=== PATIENT | female | born 1985 ===

== ENCOUNTER 2019-04-10 15:53 | Emergency (ER) | payer SELFPAY ==
[~2019-04-10] VITALS: Ht 162 cm; Wt 65.9 kg
[2019-04-10] MEDS ORDERED: NS IV 1000 ML 1,000 ML IV SCH ×2 (17:05→20:15)
[2019-04-10] MEDS ORDERED: fentaNYL INJECTION 100 MCG/2 ML AMP IVP ONE (17:15)
[2019-04-10] MEDS ORDERED: ONDANSETRON 4 MG/2 ML (SDV) Z0FRAN IVP ONE (17:15)
[2019-04-10] MEDS ORDERED: HOLD METFORMIN - RECEIVED CONTRAST 20 ML VIAL IV SCH (17:30)
[2019-04-10] MEDS ORDERED: NS 100 ML (IVPB) BAG IV ONE (17:30)
[2019-04-10] MEDS ORDERED: IOHEXOL 350 MG/ML 100 ML (OMNIPAQUE 350) VIAL IV ONE (17:30)
[2019-04-10] MEDS ORDERED: CATHETER FLUSH 10 ML SYR IV PRN (17:30)
[2019-04-10 17:52] LABS: BASOPHILS % (AUTO) 0 % (0-10); EOSINOPHILS % (AUTO) 0 % (0-10); HEMATOCRIT 29 % (35-52); HEMOGLOBIN 9.2 G/DL (11.5-16.0); LYMPHOCYTES # (AUTO) 0.8 X 10^3 (1.0-4.0); LYMPHOCYTES % (AUTO) 8 % (12-44); MEAN CORPUSCULAR HEMOGLOBIN 23 PG (25-34); MEAN CORPUSCULAR HGB CONC 32 G/DL (32-36); MEAN CORPUSCULAR VOLUME 73 FL (80-99); MEAN PLATELET VOLUME 9.6 FL (7.4-10.4); MONOCYTES % (AUTO) 9 % (0-12); NEUTROPHILS # (AUTO) 9.1 X 10^3 (1.8-7.8); NEUTROPHILS % (AUTO) 83 % (42-75); PLATELET COUNT 425 10^3/uL (130-400); RED CELL DISTRIBUTION WIDTH 16.5 % (10.0-14.5); WHITE BLOOD COUNT 10.9 10^3/uL (4.3-11.0)
--- NOTE | 2019-04-10 17:54 | Diagnostic Imaging Report ---
PROCEDURE: CT abdomen and pelvis with contrast. TECHNIQUE: Multiple contiguous axial images were obtained through the abdomen and pelvis after administration of intravenous contrast. Auto Exposure Controls were utilized during the CT exam to meet ALARA standards for radiation dose reduction. INDICATION: Right lower quadrant pain with loss of appetite. FINDINGS: The lung bases are clear. The appendix is visualized and normal. Bowel gas pattern is normal. No evidence of constipation. No evidence of diverticulitis or colitis. Small bowel shows a few dilated loops with air-fluid level in the left upper quadrant. Remainder of the small bowel is not distended. No bowel wall thickening is demonstrated. There is small amount of free fluid in the pelvis. No pelvic masses are demonstrated. No intra-abdominal adenopathy of pathologic size. No free air. Good opacification of the aorta and abdominal vessels and organs which appear normal. Liver is normal. Gallbladder and bile ducts are normal. Pancreas and spleen are normal. The adrenal glands and kidneys are normal. Delayed images show normal enhancement of the renal collecting system with the bladder opacified and normal. No blastic or lytic bony changes. IMPRESSION: 1. No findings to indicate appendicitis. 2. A few mildly dilated loops of small bowel in the left upper quadrant, nonspecific in nature, which could represent enteritis. 3. Small amount of free fluid in the pelvis without evidence of pelvic mass. Dictated by: Dictated on workstation # [id number]
[2019-04-10 18:04] LABS: ALANINE AMINOTRANSFERASE 12 U/L (0-55); ALBUMIN 4.7 GM/DL (3.2-4.5); ALKALINE PHOSPHATASE 63 U/L (40-136); BILIRUBIN,TOTAL 0.5 MG/DL (0.1-1.0); BUN/CREATININE RATIO 13; CALCIUM 9.3 MG/DL (8.5-10.1); CARBON DIOXIDE 20 MMOL/L (21-32); CHLORIDE 106 MMOL/L (98-107); GFR ESTIMATED > 60; GLUCOSE 87 MG/DL (70-105); LIPASE 13 U/L (8-78); POTASSIUM 3.3 MMOL/L (3.6-5.0); SODIUM 139 MMOL/L (135-145); TOTAL PROTEIN 8.4 GM/DL (6.4-8.2)
[2019-04-10 18:24] LABS: BAND NEUTROPHILS 2 %; LYMPHOCYTES % (MANUAL) 7 %; MONOCYTES % (MANUAL) 9 %; NEUTROPHILS % (MANUAL) 82 %
[2019-04-10] MEDS ORDERED: KETOROLAC 30 MG/ML VIAL IVP ONE (18:30)
[2019-04-10 18:36] LABS: RBC MORPH NORMAL
--- NOTE | 2019-04-10 18:58 | ED Abdominal Pain ---
General Chief Complaint: Abdominal/GI Problems Stated Complaint: R SIDE ABD PAIN Nursing Triage Note: Pt to triage via W/C with c/o RLQ abd pain that started last night, rates 10/10. Pt is crying on arrival, guarding area. Pt was seen earlier at [facility] and was referred to come here. Pt denies any N/V, states she hasn't ate today. Sepsis Screen: No Definite Risk Source of Information: Patient, Family, Meeting Facilitator Exam Limitations: Language Barrier (ARINA DANIEL MD) History of Present Illness Date Seen by Provider: Apr 10, 2019 Time Seen by Provider: 16:35 Initial Comments This 33-year-old woman presents to the emergency room with right-sided abdominal pain for 3 days. She is also had headache and chills. She is nauseated without vomiting. She denies diarrhea or constipation. She has pain with urination. She denies any vaginal symptoms or pain with intercourse. She has had a tubal ligation. She speaks Bulgarian and history is obtained with the language line special education superintendent and the assistance of her . She denies any significant health problem. (ARINA DANIEL MD) Allergies and Home Medications Allergies Coded Allergies: No Known Drug Allergies (Unverified , 04/10/19) Patient Home Medication List Home Medication List Reviewed: Yes (ARINA DANIEL MD) Review of Systems Review of Systems Constitutional: see HPI, chills EENTM: No Symptoms Reported Respiratory: No Symptoms Reported Cardiovascular: No Symptoms Reported Gastrointestinal: See HPI Genitourinary: See HPI Musculoskeletal: no symptoms reported Skin: no symptoms reported Psychiatric/Neurological: See HPI, Headache Endocrine: No Symptoms Reported Hematologic/Lymphatic: No Symptoms Reported (ARINA DANIEL MD) Past Hdkaemk-Phrkfb-Ebbksm Hx Past Med/Social Hx: Reviewed and Corrections made (ARINA DANIEL MD) Patient Social History Alcohol Use: Denies Use Recreational Drug Use: No Smoking Status: Never a Smoker 2nd Hand Smoke Exposure: No Recent Foreign Travel: No Contact w/Someone Who Travel: No Recent Infectious Disease Expo: No Recent Hopitalizations: No Physical Abuse: No Sexual Abuse: No Mistreated: No Fear: No (ARINA DANIEL MD) Seasonal Allergies Seasonal Allergies: No (ARINA DANIEL MD) Past Medical History Surgeries: Yes Section, Tubal Ligation Respiratory: No Cardiac: No Neurological: No Genitourinary: No Gastrointestinal: No Musculoskeletal: No Endocrine: No HEENT: No Cancer: No Psychosocial: No Integumentary: No (ARINA DANIEL MD) Physical Exam Vital Signs Vital Signs - First Documented 04/10/19 16:06 Temp 37.2 Pulse 93 Resp 20 B/P (MAP) 101/68 (79) Pulse Ox 99 O2 Delivery Room Air (BERNOT,JOHN) Vital Signs Capillary Refill : Less Than 3 Seconds (ARINA DANIEL MD) Height/Weight/BMI Height: '" Weight: lbs. oz. kg; 25.00 BMI Method: General Appearance: WD/WN, moderate distress HEENT: PERRL/EOMI, normal ENT inspection, pharynx normal Neck: normal inspection, other (no true nuchal rigidity) Respiratory: lungs clear, normal breath sounds, no respiratory distress, no accessory muscle use Cardiovascular: regular rate, rhythm, no edema, no murmur Gastrointestinal: normal bowel sounds, soft, tenderness (throughout the right abdomen. Rovsing positive. Iliopsoas sign positive.) Extremities: normal inspection, no pedal edema Neurologic/Psychiatric: motorized squad commanding officer II-XII nml as tested, no motor/sensory deficits, alert, normal mood/affect, oriented x 3 Skin: normal color, warm/dry (ARINA DANIEL MD) Progress/Results/Core Measures Results/Orders Lab Results Laboratory Tests Test 04/10/19 16:29 04/10/19 20:58 Range/Units White Blood Count 10.9 4.3-11.0 10^3/uL Red Blood Count 3.99 L 4.35-5.85 10^6/uL Hemoglobin 9.2 L 11.5-16.0 G/DL Hematocrit 29 L 35-52 % Mean Corpuscular Volume 73 L 80-99 FL Mean Corpuscular Hemoglobin 23 L 25-34 PG Mean Corpuscular Hemoglobin Concent 32 32-36 G/DL Red Cell Distribution Width 16.5 H 10.0-14.5 % Platelet Count 425 H 130-400 10^3/uL Mean Platelet Volume 9.6 7.4-10.4 FL Neutrophils (%) (Auto) 83 H 42-75 % Lymphocytes (%) (Auto) 8 L 12-44 % Monocytes (%) (Auto) 9 0-12 % Eosinophils (%) (Auto) 0 0-10 % Basophils (%) (Auto) 0 0-10 % Neutrophils # (Auto) 9.1 H 1.8-7.8 X 10^3 Lymphocytes # (Auto) 0.8 L 1.0-4.0 X 10^3 Monocytes # (Auto) 1.0 0.0-1.0 X 10^3 Eosinophils # (Auto) 0.0 0.0-0.3 10^3/uL Basophils # (Auto) 0.0 0.0-0.1 10^3/uL Neutrophils % (Manual) 82 % Lymphocytes % (Manual) 7 % Monocytes % (Manual) 9 % Band Neutrophils 2 % Blood Morphology Comment NORMAL Sodium Level 139 135-145 MMOL/L Potassium Level 3.3 L 3.6-5.0 MMOL/L Chloride Level 106 98-107 MMOL/L Carbon Dioxide Level 20 L 21-32 MMOL/L Anion Gap 13 5-14 MMOL/L Blood Urea Nitrogen 9 7-18 MG/DL Creatinine 0.70 0.60-1.30 MG/DL Estimat Glomerular Filtration Rate > 60 BUN/Creatinine Ratio 13 Glucose Level 87 70-105 MG/DL Calcium Level 9.3 8.5-10.1 MG/DL Corrected Calcium 8.5-10.1 MG/DL Total Bilirubin 0.5 0.1-1.0 MG/DL Aspartate Amino Transf (AST/SGOT) 18 5-34 U/L Alanine Aminotransferase (ALT/SGPT) 12 0-55 U/L Alkaline Phosphatase 63 40-136 U/L C-Reactive Protein High Sensitivity 5.52 H 0.00-0.50 MG/DL Total Protein 8.4 H 6.4-8.2 GM/DL Albumin 4.7 H 3.2-4.5 GM/DL Lipase 13 8-78 U/L Serum Test, Qualitative NEGATIVE NEGATIVE Urine Color RED H Urine Clarity CLOUDY Urine pH 5.5 5-9 Urine Specific [place] 1.015 L 1.016-1.022 Urine Protein 2+ H NEGATIVE Urine Glucose (UA) NEGATIVE NEGATIVE Urine Ketones NEGATIVE NEGATIVE Urine Nitrite NEGATIVE NEGATIVE Urine Bilirubin NEGATIVE NEGATIVE Urine Urobilinogen 0.2 < = 1.0 MG/DL Urine Leukocyte Esterase TRACE NEGATIVE Urine RBC (Auto) 3+ H NEGATIVE Urine RBC TNTC H /HPF Urine WBC 5-10 H /HPF Urine Crystals NONE /LPF Urine Bacteria MODERATE H /HPF Urine Casts NONE /LPF Urine Mucus NEGATIVE /LPF Urine Culture Indicated YES (JOHN MARKHAM) Micro Results Microbiology 04/10/19 Influenza Types A,B Antigen (DINORAH) - Final, Complete (JOHN MARKHAM) My Orders Orders - JOHN MARKHAM Acetaminophen Tablet (Tylenol Tablet) (04/10/19 20:15) Ns Iv 1000 Ml (Sodium Chloride 0.9%) (04/10/19 20:15) Influenza A And B Antigens (04/10/19 20:08) Ns Iv 1000 Ml (Sodium Chloride 0.9%) (04/10/19 20:07) Ceftriaxone For Iv Use (Rocephin For I (04/10/19 21:45) (JOHN MARKHAM) Medications Given in ED Current Medications Medications Dose Ordered Sig/Zulma Route Start Time Stop Time Status Last Admin Dose Admin Acetaminophen 1,000 mg ONCE ONCE PO 04/10/19 20:15 04/10/19 20:16 DC 04/10/19 20:15 1,000 MG Fentanyl Citrate 75 mcg ONCE ONCE IVP 04/10/19 17:15 04/10/19 17:16 DC 04/10/19 17:12 75 MCG Iohexol 100 ml ONCE ONCE IV 04/10/19 17:30 04/10/19 17:31 DC 04/10/19 17:41 70 ML Ketorolac Tromethamine 15 mg ONCE ONCE IVP 04/10/19 18:30 04/10/19 18:31 DC 04/10/19 18:33 15 MG Ondansetron HCl 8 mg ONCE ONCE IVP 04/10/19 17:15 04/10/19 17:16 DC 04/10/19 17:12 8 MG Sodium Chloride 10 ml NEEDED PRN IV 04/10/19 17:30 04/10/19 17:41 10 ML Sodium Chloride 100 ml ONCE ONCE IV 04/10/19 17:30 04/10/19 17:31 DC 04/10/19 17:41 80 ML (JOHN MARKHAM) Vital Signs/I&O 04/10/19 04/10/19 16:06 20:15 Temp 37.2 39.5 Pulse 93 Resp 20 B/P (MAP) 101/68 (79) Pulse Ox 99 O2 Delivery Room Air (JOHN MARKHAM) Blood Pressure Mean: 79 Progress Progress Note : Time: 19:00 Progress Note Patient was interviewed with the language line and assistance from . Labs were obtained and were relatively unremarkable. UA is pending. CT of the abdomen and pelvis revealed no significant pathology. Pain was treated with fentanyl and Toradol. Nausea was treated with Zofran. Care of this patient is being transitioned to John Miranda APRN at this time. (ARINA DANIEL MD) Progress Note : Progress Note 1899: Significant care from Dr. Oswald at this time. The patient does start to spike a fever and we will treat with Tylenol. In addition we will also order influenza testing. We are waiting for the patient to be able to void to rule out urinary tract infection. 2129: I have informed patient of laboratory findings, we will treat for urinary tract infection, the patient remains pain-free at this time, she is afebrile at this time. (JOHN MARKHAM) Diagnostic Imaging Diagonstic Imaging: CT Plain Films/CT/US/NM/MRI: abdomen, pelvis Comments CT abdomen and pelvis viewed by me and report reviewed. See report below: NAME: MALIK SARGENT [facility] REC#: [id number] PT STATUS: REG ER : 1985 PHYSICIAN: ARINA DANIEL MD ADMIT DATE: 04/10/19/ER Signed Date of Exam:04/10/19 CT ABDOMEN/PELVIS W PROCEDURE: CT abdomen and pelvis with contrast. TECHNIQUE: Multiple contiguous axial images were obtained through the abdomen and pelvis after administration of intravenous contrast. Auto Exposure Controls were utilized during the CT exam to meet ALARA standards for radiation dose reduction. INDICATION: Right lower quadrant pain with loss of appetite. FINDINGS: The lung bases are clear. The appendix is visualized and normal. Bowel gas pattern is normal. No evidence of constipation. No evidence of diverticulitis or colitis. Small bowel shows a few dilated loops with air-fluid level in the left upper quadrant. Remainder of the small bowel is not distended. No bowel wall thickening is demonstrated. There is small amount of free fluid in the pelvis. No pelvic masses are demonstrated. No intra-abdominal adenopathy of pathologic size. No free air. Good opacification of the aorta and abdominal vessels and organs which appear normal. Liver is normal. Gallbladder and bile ducts are normal. Pancreas and spleen are normal. The adrenal glands and kidneys are normal. Delayed images show normal enhancement of the renal collecting system with the bladder opacified and normal. No blastic or lytic bony changes. IMPRESSION: 1. No findings to indicate appendicitis. 2. A few mildly dilated loops of small bowel in the left upper quadrant, nonspecific in nature, which could represent enteritis. 3. Small amount of free fluid in the pelvis without evidence of pelvic mass. Dictated by: Dictated on workstation # [id number] Dict: 04/10/191746 Trans: 04/10/191808 AS6 [id number] Interpreted by: CRUZ CHIANG MD Electronically signed by: CRUZ CHIANG MD 04/10/191808 (ARINA DANIEL MD) Departure Impression Primary Impression: Urinary tract infection Disposition: HOME, SELF-CARE Condition: Stable/Unchanged Departure-Patient Inst. Decision time for Depature: 21:46 (JOHN MARKHAM) Referrals: [facility] (PCP) Primary Care Physician Patient Instructions: Urinary Tract Infection, Adult (DC) Add. Discharge Instructions: Take medications as directed. Be sure you are drinking plenty of fluids to stay hydrated and to flush out your urinary tract infection. Treat your fever with Tylenol or ibuprofen. Call tomorrow morning to schedule an appointment to follow-up with Kassie Mccall [facility]. Return back to the emergency room for worsening symptoms or concerns as needed. All discharge instructions reviewed with patient and/or family. Voiced understanding. Scripts Cefdinir (Cefdinir) 300 Mg Capsule 300 MG PO BID for 7 Days, #14 CAP 0 Refills Prov: JOHN MARKHAM 04/10/19 ARINA DANIEL MD Apr 10, 2019 18:58 JOHN MARKHAM Apr 10, 2019 21:48
[2019-04-10] MEDS ORDERED: NS IV 1000 ML 1,000 ML ONE (20:07)
--- NOTE | 2019-04-10 20:09 | NUR ---
PT TEMP ASSESSED TO BE 39.5 TYMPANICALLY, PROVIDER NOTIFIED.
[2019-04-10] MEDS ORDERED: ACETAMINOPHEN 500 MG TAB (TYLENOL) PO ONE (20:15)
[2019-04-10 21:05] LABS: BILIRUBIN,URINE NEGATIVE (NEGATIVE); CLARITY,URINE CLOUDY; COLOR,URINE RED; GLUCOSE, URINE (UA) NEGATIVE (NEGATIVE); KETONES,URINE NEGATIVE (NEGATIVE); LEUKOCYTE ESTERASE ,URINE TRACE (NEGATIVE); NITRITE,URINE NEGATIVE (NEGATIVE); PH,URINE 5.5 (5-9); PROTEIN,URINE 2+ (NEGATIVE)
--- NOTE | 2019-04-10 21:24 | NUR ---
PT TEMP ASSESSED TO BE 37.4 TYMPANICALLY
[2019-04-10 21:27] LABS: BACTERIA,URINE MODERATE /HPF; RBC,URINE TNTC /HPF
[2019-04-10] MEDS ORDERED: cefTRIAXone FOR IV USE 1,000 MG in WATER (STERILE) FOR INJECTION 10 ML IV ONE (21:45)
[2019-04-10] MEDS ORDERED: CEFD300C3 PO (21:48)
[2019-04-10 22:32] VITALS: BP 114/72
== END 2019-04-10 22:32 | disposition home or self-care (01) ==
LOC: ER 15:56
DX: N39.0 Urinary tract infection, site not specified (principal); Z98.51 Tubal ligation status
CPT/HCPCS: 36415; 74177; 80053; 81000; 83690; 84703; 85007; 85027; 86141; 87077; 87088; 87186; 87804; 96361; 96374; 96375